=== PATIENT | female | born 1970 | race Native Hawaiian/Other Pacific Islander ===

== ENCOUNTER 2017-08-29 09:57 | Inpatient (IN) | payer MEDICAID ==
[2017-08-29] MEDS ORDERED: POLYETHYLENE GLYCOL 3350 17 GM PKT PO PRN (17:25)
[2017-08-29] MEDS ORDERED: ACETAMINOPHEN 325 MG TAB PO PRN (17:25)
[2017-08-29] MEDS ORDERED: GABAPENTIN 300 MG CAP PO PRN (17:25)
[2017-08-29] MEDS ORDERED: LORazepam 0.5 MG TAB PO PRN (17:25)
[2017-08-29] MEDS ORDERED: BISACODYL 10 MG SUPP PR PRN (17:29)
[2017-08-29] MEDS ORDERED: ONDANSETRON DISINTEGRATING 4 MG TAB PO PRN (17:29)
[2017-08-29] MEDS ORDERED: IBUPROFEN 200 MG TAB PO SCH (18:00)
[2017-08-29] MEDS ORDERED: MAG HYDROX/AL HYDROX/SIMETH 30 ML UDCUP PO PRN (18:15)
[2017-08-29] MEDS: IBUPROFEN 200 MG TAB PO PRN (18:39)
[2017-08-29] MEDS ORDERED: MAGNESIUM CITRATE 300 ML BOTTLE PO ONE (18:42)
--- NOTE | 2017-08-29 18:49 | PDOREHIP ---
Admission [facility] - Admission - 3 Day Assessment Period Admission Date/Day 1: 08/29/17 Day 2: 08/30/17 Day 3: 08/31/17 - Active Diagnoses Comorbidities and Co-existing Conditions at Admission: 44435. None of the Above - Skin Conditions Unhealed Pressure Ulcer (1 or more/Stage 1 or >)-Admission: 0. No
--- NOTE | 2017-08-29 19:47 | GHP ---
[f rep st] HISTORY AND PHYSICAL POST ADMISSION PHYSICIAN EVALUATION AND REHABILITATION TREATMENT PLAN DATE OF ADMISSION: 08/29/2017 DATE OF EVALUATION: 08/29/2017. TIME OF EVALUATION: 1755. REFERRING FACILITY: [facility]. REFERRING PHYSICIAN; Dr. Beaver. IMPAIRMENT GROUP: 17.9. DATE OF ONSET: 08/26/2017. 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 CONSULTING PHYSICIANS: She was seen by Pulmonary and Critical Care, Dr. Raymundo and by Neurology. ETIOLOGIC DIAGNOSIS: Other medically complex conditions. HISTORY OF PRESENT ILLNESS: This patient presented to the Emergency Department at [facility] on 08/26/2017, after having 6 weeks of progressive upper and lower extremity weakness as well as muscle pain and loss of sensation. She had an outpatient evaluation including multiple tests, and was initially treated for hypothyroidism. Subsequent testing revealed a positive P-ANCA and anti- myeloperoxidase antibodies, consistent with a vasculitis. She was treated with very high dose IV steroids, 1000 mg of methylprednisolone per day for several days, and then has been transitioned to oral prednisone at 60 mg twice a day. She has had improvement in her function; however, she continues to have muscle weakness and a lack of sensation, especially in her ankles, with a prominent footdrop on the left, in her legs, and weakness in her arms and hands and loss of sensation in her hands. Hospital evaluation included brain imaging and spinal imaging, which found no significant abnormalities. CT and an MRI were done of the brain, and she had MR imaging of the spine. She was found to have a slightly elevated TSH and was continued on her levothyroxine dose. There was an elevated white blood cell count, most likely due to steroids. She had no signs or symptoms of infection. TSH was 5.17. She had no renal insufficiency, with a normal creatinine and estimated glomerular filtration rate. Urinalysis was overall within normal limits, but she had moderate blood in the urine. CSF studies were unremarkable. Brain MRI showed scattered T2 hyperintensities in the subcortical and periventricular white matter which were considered abnormal, given her age, and consistent with demyelinating disease, migraine vasculopathy , vasculitis, or chronic microvascular ischemic change. Per report, there was a Neurology consult, and she was not felt to have any demyelinating condition. Lab tests obtained today, 08/29/2017, were as follows: The CBC showed an elevated white blood cell count at 15.4. She had developed mild anemia with a hemoglobin of 11.3 and hematocrit of 35. Platelet count was markedly elevated at 774. Comprehensive metabolic profile showed normal renal function and electrolytes but possibly some dehydration, with a blood urea nitrogen of 26 and a creatinine of 0.66, and a BUN to creatinine ratio of 39. Glucose was elevated at 143, and this was likely drawn fasting. Albumin was slightly low at 2.4; otherwise, liver function tests were within normal limits. CRP was 138. On spinal cord imaging, in the C-spine there was a mild spinal cord narrowing and foraminal narrowing, but no abnormalities in the cord. Thoracic spine MRI was normal. Lumbar spine MRI showed minimal left facet synovitis and mild left caudal foraminal narrowing at L4-5 due to a small 1 mm left foraminal disk protrusion, but otherwise was within normal limits. Chest x-ray was normal, though the radiologist noted that the bones were diffusely osteopenic. PRECAUTIONS: She is a fall risk. ACTIVE COMORBIDITIES: She has no active tier 1, tier 2, or tier 3 comorbidities. PAST MEDICAL HISTORY: Hypothyroidism. PAST SURGICAL HISTORY: She has not had prior surgeries. PREHOSPITAL MEDICATIONS: She was taking levothyroxine. ADMISSION MEDICATIONS: 1. Acetaminophen 650 mg p.o. q.6 hours p.r.n. 2. Hydrocodone/acetaminophen 5/325, 1-2 tabs p.o. q.4 hours p.r.n. 3. Maalox 30 cc p.o. b.i.d. p.r.n. heartburn. 4. Enoxaparin 40 mg subcutaneous daily at 1600. 5. Gabapentin 300 mg p.o. t.i.d. p.r.n. 6. Ibuprofen 200 mg p.o. t.i.d. with meals. 7. Levothyroxine 75 mcg p.o. daily. 8. Lorazepam 0.5-1 mg p.o. q.4 hours p.r.n. anxiety. 9. control pill with iron supplement. 10. Ondansetron 4 mg IV q.4 hours p.r.n. 11. Polyethylene glycol 17 g p.o. daily p.r.n. 12. Prednisone 60 mg p.o. q.12 hours. 13. Senna/docusate 1 p.o. daily. 14. Tramadol 50 mg p.o. at bedtime. ALLERGIES: There are no known drug allergies. PSYCHOSOCIAL HISTORY: She is . She lives with her . She is mother of a 7-year-old and a 9-year-old. She does not work outside of the house. She has a remote history of tobacco smoking and alcohol use, but does not use those substances currently. FAMILY HISTORY: She reports that her parents are in good health. REVIEW OF SYSTEMS: She says that she had some loss of peripheral vision, but this has recovered. She denies headache or difficulty swallowing. She reports loss of sensation in her fingers and in her feet below the ankles and she has weakness, especially in her ankles and hands bilaterally. She reports constipation times several days, which has been refractory to use of suppository 2 days ago, as well as the laxatives she has been getting so far, which included a daily senna tablet and polyethylene glycol every day. She had prominent muscle pain, especially in her legs, but this has resolved. She now has tingling in the extremities, which is bothersome. She has been able to sleep. She has no dysuria, urinary retention, or urinary frequency. She denies cough or dyspnea. She is not bringing up sputum, and no hemoptysis. She has a good appetite. She had considerable weight loss over the past several weeks leading up to her hospitalization, and otherwise a 10-point review of systems is negative. PHYSICAL EXAM: VITAL SIGNS: Blood pressure is 128/76, heart rate is 52, respiratory rate is 14, temperature is 98.3, oxygen saturation is 95% on room air. GENERAL: This is a well-nourished, well-developed woman, appears her chronologic age, lying in bed, dressed in street clothes, cooperative and in no acute distress. HEENT: Extraocular movements are intact. Pupils are equal, round, and reactive to light. Mucous membranes are moist. Dentition is in good condition. There are no oropharyngeal mucosal lesions. She has an uncrowded airway, Mallampati class 2. NECK: Supple, with no thyromegaly. HEART: There is a regular rate and rhythm with no murmurs, rubs, or gallops. LUNGS: Clear to auscultation bilaterally. ABDOMEN: Soft, nontender, nondistended, with normoactive bowel sounds. EXTREMITIES: There is no cyanosis or clubbing. There is trace edema bilaterally at the ankles. Radial and dorsalis pedis pulses are 2+ bilaterally. NEUROLOGIC: She is alert and oriented x3. Cranial nerves 2-12 are grossly intact. She has weakness in the upper extremities bilaterally, in the hand manager decision support approximately 3/5, and biceps and triceps approximately 3/5. Her deltoids and shoulder shrugs are 5/5. In the lower extremities, hip flexors are 4/5, quadriceps are 5/5, hamstrings are 4 /5, and ankle dorsiflexion is 0 to 1/5 on the left and 1 to 2/5 on the right. Her toes have dorsiflexion and plantar flexion. Deep tendon reflexes are 2+ bilaterally at the biceps, patellae, and Achilles tendons. Sensation is diminished bilaterally in the hands and is absent in the feet below the ankles to light touch, and it is present above the ankles and the feet. She is able to arise from seated to standing using her hands on the bed rail, and she can maintain balance standing with a front-wheeled walker. When she attempts to ambulate, she has very prominent footdrop on the left. CURRENT LEVEL OF FUNCTION: Per the pre-admission screen. Regarding diet, feeding, and swallowing, she was on regular diet with thin liquids. She required setup. For grooming, she needed assistance. For bathing, she needed assistance. For dressing, she needed minimal assistance to don her socks. For toileting, she needed assistance. For bed mobility, she needed minimal assistance, but today she is independent with bed mobility. For transfers, she required minimal assistance but today she requires no more than standby to contact guard assist. She used a front-wheeled walker. Her balance was poor. Her endurance was poor. She ambulated approximately 10 feet with minimal assistance. Stair climbing needed assistance. She was considered a fall risk, and it was noted that her left hand was stronger than her right hand. She has had some functional improvement in terms of ability to stand and possibly to transfer and regarding her bed mobility since the preadmission screen, but she still meets criteria for inpatient rehabilitation. IMPRESSION: This is a 46-year-old woman who has had a 6-week history of progressive weakness in the legs leading to 3 falls at home, and eventual diagnosis of a vasculitis. She was hospitalized and had 3 days of high-dose IV steroids and is now on oral steroids. Per the discharging physician, she has had about a 40% to 50% improvement in her symptoms during her hospitalization, but she remains quite debilitated, requiring assistance for mobility and activities of daily living, with profound muscle weakness, especially distally in the upper and lower extremities. She is appropriate for inpatient rehabilitation, where she will benefit from nursing care regarding fall risk, bowel and bladder, skin integrity, medication administration and medication education. She will benefit from physical therapy and occupational therapy to optimize mobility and activities of daily living towards discharge home. She will benefit from the care of a physician regarding deep venous thrombosis risk, pain management, constipation, and medication management. Her goal is to complete a rehabilitation stay and then return home with her family, and home health care and durable medical equipment as needed. For a safe discharge it is expected that she will achieve modified independence with mobility, activities of daily living, and home management. She will be able to manage her medication and she will have had medication education. There will be education for the patient and her family regarding her medical condition and her functional needs. She will have therapy with physical therapy and occupational therapy for 90 minutes per day for each discipline on 5-7 days per week. Her expected duration of stay is 7-10 days. It is anticipated that upon discharge she will continue to benefit from home health services including nursing, occupational therapy, and physical therapy. PLAN: 1. 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 PT and OT to optimize mobility and activities of daily living toward discharge home at the modified independent level. 2. Medical management of vasculitis. Continue prednisone 60 mg p.o. b.i.d. She has followup scheduled with [place] mattress stripper, Dr. Flores, on 2017, at the [facility] at 2:00 p.m., where Dr. Flores will do further assessment and determine future medication management. This likely will involve steroid sparing agents such as rituximab, cyclophosphamide, or mycophenolate. Check CRP on 09/01/2017. 3. Symptom management. She continues to complain of paresthesias. Will schedule gabapentin rather than continuing it p.r.n. Additionally, will continue acetaminophen, hydrocodone/acetaminophen combination, and ibuprofen. Those will remain. 4. Constipation. This has been refractory to her bowel regimen. Bisacodyl suppository was not effective on the of this month. She has been getting polyethylene glycol daily and 1 senna tablet daily. Will increase senna to 2 tablets p.o. b.i.d., and will order magnesium citrate which can be administered tomorrow outside of her scheduled therapy times if she does not have a bowel movement with her increased bowel regimen. 5. Anxiety and insomnia. She has a prescription for lorazepam, and this will be continued. 6. Question of nausea and vomiting. She comes with a prescription for ondansetron to be administered IV. Will not continue IV medications, but will continue ondansetron on a p.r.n. basis orally. 7. Anemia, thrombocytosis and hyperglycemia. We will recheck a basic metabolic profile and a complete blood count in the morning to evaluate both of these conditions. 8. Osteopenia on imaging. Check vitamin D level. 9. Prophylaxis. She comes out of the hospital on enoxaparin. If her mobility improves significantly, this will be discontinued soon. As she is also concurrently on ibuprofen and prednisone, she has elevated risk for GI bleeding. We will initiate pantoprazole 40 mg p.o. daily starting tomorrow morning. Followup. She is scheduled to see [place] mattress stripper Dr. Flores on Friday , 09/01/2017, at 2:00 p.m. Her primary care provider at [facility] is Susan Houser MD, and she should see Dr. Houser after her discharge from Inpatient Rehabilitation. /[id number]/MODL MTDD
[2017-08-29] MEDS ORDERED: methylPREDNISolone SOD SUCC 125 MG/2 ML VIAL IVP SCH (21:00)
[2017-08-29] MEDS ORDERED: methylPREDNISolone SOD SUCC 40 MG/ML VIAL IVP SCH (21:00)
[2017-08-29] MEDS: SENNOSIDES/DOCUSATE SODIUM TAB PO SCH (21:50)
[2017-08-29] MEDS: GABAPENTIN 300 MG CAP PO SCH (21:50)
[2017-08-29] MEDS: traMADol 50 MG TAB PO SCH (21:50)
[2017-08-29] MEDS: predniSONE 20 MG TAB PO SCH (21:50)
[2017-08-30] MEDS: HYDROCODONE/APAP 5/325 TAB PO PRN (03:56)
[2017-08-30] MEDS: LEVOTHYROXINE 75 MCG TAB PO SCH (05:56)
[2017-08-30] MEDS ORDERED: SENNOSIDES/DOCUSATE SODIUM TAB PO SCH (09:00)
[2017-08-30] MEDS: predniSONE 20 MG TAB PO SCH ×2 (09:34→21:52)
[2017-08-30] MEDS: GABAPENTIN 300 MG CAP PO SCH ×3 (09:34→21:52)
[2017-08-30] MEDS: SENNOSIDES/DOCUSATE SODIUM TAB PO SCH ×3 (09:34→22:00)
[2017-08-30] MEDS: PANTOPRAZOLE SODIUM 40 MG TAB PO SCH (09:34)
[2017-08-30] MEDS: JUNEL FE PO SCH (10:46)
--- NOTE | 2017-08-30 14:00 | SOAPPROG ---
SOAP Progress Note Assessment/Plan: Assessment: 46 YO woman with vasculitis, headache 1. Peripheral nervous system vasculitis with distal weakness: Rheumtology workup underway. Cont steroids, PT and PT eval and treat 2. Headache: unresponsive to meds and or patient declining meds; further education and reassurance provided, options reviewed. 3. Dysesthesias: unchanged. Cont Gabapentin TID. 4. Constipation: no BM x 5 days, poor PO intake x 5 days, better today. Trial suppository, trial mag citrate. Monitor. 5. Anxiety, Insomnia: declining meds. Cont education and reassurance. 6. Nausea/Vomiting: none reported since admission 08/29. Cont ondansetron PRN 7. Anemia: No new labs ordered, cont to monitor 8. Hyperglycemia: No new labs ordered, cont to monitor 9. Prophylaxis: Cont enoxaparin for DVT risk, Cont pantoprazole for GI bleed risk 10. Followup: Rheumatology eval on Friday 09/01 Plan: Cont Dr Spencer rehab treatment plan 08/30/17 14:01 Subjective: Mildly anxious Moderately severe ORDONEZ 7/10, slightly improved Poor sleep Poor PO intake, but improving No F/C/CP/SOB/N/V/D Objective: Vital Signs Temp Pulse Resp BP Pulse Ox 36.4 C 50 L 16 128/77 H 95 08/30/17 08:00 08/30/17 08:00 08/30/17 08:00 08/30/17 08:00 08/30/17 08:00 08/29/17 08/30/17 08/31/17 05:59 05:59 05:59 Intake Total 200 Output Total 1150 Balance -950 Physical Exam - Physical Exam General Appearance: alert, no apparent distress Neck: supple Respiratory: lungs clear Cardiac/Chest: regular rate, rhythm Abdomen: normal bowel sounds, soft Skin: normal color, warm/dry, No rash Extremities: No pedal edema, No calf tenderness Neuro/Psych: alert, normal mood/affect, oriented x 3, abnormal gait, motor weakness, sensory deficit, other (no acute changes), No cognition abnormalities ICD10 Worksheet Patient Problems: Problems Problem Status Onset 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
[2017-08-30] MEDS ORDERED: MAGNESIUM CITRATE 300 ML BOTTLE PO ONE (16:15)
[2017-08-30] MEDS: ENOXAPARIN 40 MG/0.4 ML SYR SC SCH (16:17)
[2017-08-30] MEDS: traMADol 50 MG TAB PO SCH ×2 (21:52→22:00)
[2017-08-31] MEDS: HYDROCODONE/APAP 5/325 TAB PO PRN (03:58)
[2017-08-31] MEDS: LEVOTHYROXINE 75 MCG TAB PO SCH (07:01)
[2017-08-31] MEDS: SENNOSIDES/DOCUSATE SODIUM TAB PO SCH ×2 (08:06→20:47)
[2017-08-31] MEDS: JUNEL FE PO SCH (08:06)
[2017-08-31] MEDS: GABAPENTIN 300 MG CAP PO SCH ×3 (09:04→20:34)
[2017-08-31] MEDS: PANTOPRAZOLE SODIUM 40 MG TAB PO SCH (09:04)
[2017-08-31] MEDS: predniSONE 20 MG TAB PO SCH ×2 (09:04→20:33)
--- NOTE | 2017-08-31 11:56 | SOAPPROG ---
SOAP Progress Note Assessment/Plan: Assessment: 46 YO woman with vasculitis, headache update: No new problems. Still with headache and dysesthesias, not responding to meds, and patient often declines meds available to her. Participating in therapy. 1. Peripheral nervous system vasculitis with distal weakness: Rheumatology workup underway. Cont steroids, PT and OT eval and treat 2. Headache: unresponsive to meds and or patient declining meds; further education and reassurance provided, options reviewed. 3. Dysesthesias: unchanged. Cont Gabapentin 300 mg TID. 4. Constipation: Had good BM after mag citrate. Cont to Monitor. 5. Anxiety, Insomnia: declining meds. Cont education and reassurance. 6. Nausea/Vomiting: none reported since admission 08/29. Cont ondansetron PRN 7. Anemia: F/U labs in am. 8. Hyperglycemia: F/U labs in am. 9. Prophylaxis: Cont enoxaparin for DVT risk, Cont pantoprazole for GI bleed risk 10. Followup: Rheumatology eval on Friday 09/01 Plan: Cont Dr Dubon's rehab treatment plan 08/31/17 11:53 08/31/17 11:56 Subjective: No F/C/CP/SOB/N/V/D/C Objective: Vital Signs Temp Pulse Resp BP Pulse Ox 36.3 C 73 17 125/82 H 95 08/30/17 20:00 08/31/17 08:00 08/31/17 08:00 08/31/17 08:00 08/31/17 08:00 08/30/17 08/31/17 09/01/17 05:59 05:59 05:59 Intake Total 200 90 Output Total 1150 Balance -950 90 Physical Exam - Physical Exam General Appearance: alert, no apparent distress Neck: supple Respiratory: lungs clear Cardiac/Chest: regular rate, rhythm Neuro/Psych: alert, oriented x 3, motor weakness, sensory deficit, other (No acute changes) ICD10 Worksheet Patient Problems: Problems Problem Status Onset 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
[2017-08-31] MEDS: ENOXAPARIN 40 MG/0.4 ML SYR SC SCH (15:32)
[2017-08-31] MEDS: traMADol 50 MG TAB PO SCH (20:33)
[2017-09-01] MEDS: HYDROCODONE/APAP 5/325 TAB PO PRN (01:12)
[2017-09-01] MEDS: LEVOTHYROXINE 75 MCG TAB PO SCH (05:31)
[2017-09-01 08:22] LABS: PLATELET COUNT 725 10^3/uL (150-400)
[2017-09-01] MEDS: GABAPENTIN 300 MG CAP PO SCH ×3 (08:51→23:05)
[2017-09-01] MEDS: predniSONE 20 MG TAB PO SCH (08:52)
[2017-09-01] MEDS: PANTOPRAZOLE SODIUM 40 MG TAB PO SCH (08:52)
[2017-09-01] MEDS: SENNOSIDES/DOCUSATE SODIUM TAB PO SCH ×2 (08:53→20:58)
[2017-09-01] MEDS: JUNEL FE PO SCH (08:57)
--- NOTE | 2017-09-01 09:20 | SOAPPROG ---
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 * Initial functional independence measure score 87. Standby assist for bed mobility, contact guard assist for transfers with a front wheeled walker. Contact guard animal assist ambulating 100 ft with a left AFO. Climbed 5 stairs with bilateral rails and minimal assistance. Upper body dressing with setup/contact guard assist except needs assistance for closure of brought. Lower body assist for AFO and the shoe on the left foot. She transfer in bathing was done with supervision. * Continue PT and OT to optimize mobility and activities of daily living toward discharge home at the modified independent level. Medical management of vasculitis. Continue prednisone 60 mg p.o. b.i.d. She has followup scheduled with [place] final canoe inspector, Dr. Flores, on 09/01/2017 , at the [facility] at 2:00 p.m., where Dr. Flores will do further assessment and determine future medication management. This likely will involve steroid sparing agents such as rituximab, cyclophosphamide, or mycophenolate. Check CRP on 09/01/2017. Symptom management. She continues to complain of paresthesias. * Increase gabapentin from 300 mg three times daily to 400 mg three times daily. * Continue acetaminophen, hydrocodone/acetaminophen combination, and ibuprofen. Those will remain. * Insomnia. * Hope for improvement if neuropathic comes responded to increased gabapentin, and if prednisone will be tapered or discontinued. * Zolpidem and lorazepam are available. * Constipation. Responding to bowel regimen. * Continue senna twice daily in a polyethylene glycol q.day, physical suppository p.r.n.. Consider repeat magnesium citrate if necessary. * Thrombocytosis. Likely due to vasculitis. No specific treatment indicated * Osteopenia on imaging. Low vitamin-D. Initiated supplementation 09/01/2017. * Prophylaxis. She comes out of the hospital on enoxaparin. If her mobility improves significantly, this will be discontinued soon. As she is also concurrently on ibuprofen and prednisone, she has elevated risk for GI bleeding. We will initiate pantoprazole 40 mg p.o. daily starting tomorrow morning. Followup. She is scheduled to see [place] final canoe inspector Dr. Flores on Friday , 09/01/2017, at 2:00 p.m. Her primary care provider at [facility] is Susan Houser MD, and she should see Dr. Houser after her discharge from Inpatient Rehabilitation. Attended staffing, 15 min. Discussed with piano case and bench assembler, pharmacist, dietitian, PT, OT. Lives in a 2 level home with 13 steps there is also basement. There are 2 steps to enter. Lives with her and takes care of 2 children ages 7 and 9. Expect to week length of stay. Tentative discharge date of 09/10/2017. 09/01/17 11:44 Subjective: Neuropathic symptoms with tingling in the x-rays interfered with sleep last night. Zolpidem was ordered by the weekend covering physician but not given. Also reports constipation. Also has anxiety. Objective: Vital Signs Temp Pulse Resp BP Pulse Ox 36.7 C 50 L 14 123/83 H 94 08/31/17 20:00 08/31/17 20:00 08/31/17 20:00 08/31/17 20:00 08/31/17 20:00 Laboratory Results 09/01/17 06:00 09/01/17 06:00 08/31/17 09/01/17 09/02/17 05:59 05:59 05:59 Intake Total 830 Balance 830 Physical Exam - Physical Exam General Appearance: alert, no apparent distress, thin Respiratory: normal breath sounds, No crackles, No rhonchi, No wheezing Cardiac/Chest: regular rate, rhythm, edema (Trace bilateral pretibial), No diastolic murmur, No systolic murmur Skin: normal color, warm/dry Neuro/Psych: alert, normal mood/affect, oriented x 3 ICD10 Worksheet Patient Problems: Problems Problem Status Onset 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
[2017-09-01] MEDS: CHOLECALCIFEROL VIT D3 2,000 UNITS TAB/CAP PO SCH (12:11)
[2017-09-01] MEDS ORDERED: predniSONE 20 MG TAB PO SCH (18:00)
[2017-09-01] MEDS: ENOXAPARIN 40 MG/0.4 ML SYR SC SCH (18:07)
[2017-09-01] MEDS: traMADol 50 MG TAB PO SCH (20:58)
[2017-09-02] MEDS: LEVOTHYROXINE 75 MCG TAB PO SCH (06:14)
[2017-09-02] MEDS: GABAPENTIN 300 MG CAP PO SCH (08:37)
[2017-09-02] MEDS: predniSONE 20 MG TAB PO SCH (08:38)
[2017-09-02] MEDS: PANTOPRAZOLE SODIUM 40 MG TAB PO SCH (08:38)
[2017-09-02] MEDS: CHOLECALCIFEROL VIT D3 2,000 UNITS TAB/CAP PO SCH (08:39)
[2017-09-02] MEDS: SENNOSIDES/DOCUSATE SODIUM TAB PO SCH ×2 (08:46→20:58)
[2017-09-02] MEDS: JUNEL FE PO SCH (11:58)
--- NOTE | 2017-09-02 12:33 | SOAPPROG ---
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 * Initial functional independence measure score 87. Standby assist for bed mobility, contact guard assist for transfers with a front wheeled walker. Contact guard animal assist ambulating 100 ft with a left AFO. Climbed 5 stairs with bilateral rails and minimal assistance. Upper body dressing with setup/contact guard assist except needs assistance for closure of brought. Lower body assist for AFO and the shoe on the left foot. She transfer in bathing was done with supervision. * Ambulation improved to 150' and per PT can do this 3x/day or more as of 2017.. * Continue PT and OT to optimize mobility and activities of daily living toward discharge home at the modified independent level. * Mononeuritis multiplex. * Seen by Rheumatology 09/01/2017. * Prednisone reduced to 60 mg QD. * Needs muscle/nerve biopsy. * Follow-up with Rheumatology in 8 weeks, or approximately 10/27/2017. * Symptom management. She continues to complain of paresthesias. * Increase gabapentin from 300 mg three times daily to 400 mg three times daily starting 09/02/2017. * Continue acetaminophen, hydrocodone/acetaminophen combination, tramadol QHS, and ibuprofen. * Insomnia. * Hope for improvement if neuropathic comes responded to increased gabapentin, and with prednisone taper. * Zolpidem and lorazepam are available. * Anxiety. Intervention per LEGAL WRITING PROFESSOR. Consider Psychiatry consult. * Constipation. Responding to bowel regimen. * Continue senna twice daily and polyethylene glycol q.day PRN, bisacodyl suppository p.r.n.. Consider repeat magnesium citrate if necessary. * Thrombocytosis. Likely due to vasculitis. No specific treatment indicated * Osteopenia on imaging. Low vitamin-D. Initiated supplementation 09/01/2017. DEXA ordered per Rheumatology; brian get it as outpatient after discharge. * Prophylaxis. Ambulating > 150' TID. Will d/c enoxaparin and famotidine starting 09/03/2017. Followup. She is scheduled to see [facility] operator [employer] Dr. Sandra calle approximately 10/27/2017. Her primary care provider at [facility] is Susan Houser MD, and she should see Dr. Houser after her discharge from [facility]patient [facility]. Lives in a 2 level home with 13 steps there is also basement. There are 2 steps to enter. Lives with her and takes care of 2 children ages 7 and 9. Expect to week length of stay. Tentative discharge date of 09/10/2017. 09/02/17 12:36 Subjective: Continues to complain of pain, especially R biceps and tingling in the fingers. Feels like feet are swollen, and also lacks sensation in feet. Symptoms interfere with sleep. Objective: Vital Signs Temp Pulse Resp BP Pulse Ox 36.6 C 73 18 115/83 H 93 09/02/17 06:41 09/02/17 06:41 09/02/17 06:41 09/02/17 06:41 09/02/17 06:41 Laboratory Results 09/01/17 06:00 09/01/17 06:00 09/01/17 09/02/17 09/03/17 05:59 05:59 05:59 Intake Total 830 886 350 Balance 830 886 350 Physical Exam - Physical Exam General Appearance: WD/WN, alert, no apparent distress Respiratory: No respiratory distress, No accessory muscle use Skin: normal color, warm/dry Extremities: pedal edema (trace) Neuro/Psych: alert, normal mood/affect, oriented x 3, abnormal gait (Observed ambulating in chun with PT using R hand on rail, slow, ataxic.), other (Anxious) ICD10 Worksheet Patient Problems: Problems Problem Status Onset Peripheral neuropathy due to inflammation Acute Vasculitis, ANCA positive Acute 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
[2017-09-02] MEDS ORDERED: GABAPENTIN 300 MG CAP PO SCH (12:40)
[2017-09-02] MEDS: GABAPENTIN 400 MG CAP PO SCH ×3 (13:37→21:00)
[2017-09-02] MEDS: ENOXAPARIN 40 MG/0.4 ML SYR SC SCH (16:29)
[2017-09-02] MEDS: traMADol 50 MG TAB PO SCH (20:59)
[2017-09-02] MEDS: ZOLPIDEM TARTRATE 5 MG TAB PO PRN (21:53)
[2017-09-03] MEDS: HYDROCODONE/APAP 5/325 TAB PO PRN (04:22)
[2017-09-03] MEDS: LEVOTHYROXINE 75 MCG TAB PO SCH (06:24)
[2017-09-03] MEDS: GABAPENTIN 400 MG CAP PO SCH ×3 (09:05→21:53)
[2017-09-03] MEDS: CHOLECALCIFEROL VIT D3 2,000 UNITS TAB/CAP PO SCH (09:06)
[2017-09-03] MEDS: predniSONE 20 MG TAB PO SCH (09:08)
[2017-09-03] MEDS: PANTOPRAZOLE SODIUM 40 MG TAB PO SCH (09:08)
[2017-09-03] MEDS: SENNOSIDES/DOCUSATE SODIUM TAB PO SCH ×2 (09:11→20:12)
[2017-09-03] MEDS: JUNEL FE PO SCH (10:28)
--- NOTE | 2017-09-03 11:17 | SOAPPROG ---
SOAP Progress Note Assessment/Plan: Assessment: 46-year-old woman hospitalized 08/26/2017 after 6 week course of increasing weakness leading to falls at home, with diagnosis of P-ANCA vasculitis, treated with 1000 mg IV prednisolone x3 days. Diagnosis of mononeuritis multiplex per Rheumatology 09/01/2017. 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 * Initial functional independence measure score 87. Standby assist for bed mobility, contact guard assist for transfers with a front wheeled walker. Contact guard minimal assist ambulating 100 ft with a left AFO. Climbed 5 stairs with bilateral rails and minimal assistance. Upper body dressing with setup/contact guard assist except needs assistance for closure of brought. Lower body assist for AFO and the shoe on the left foot. She transfer in bathing was done with supervision. * Ambulation improved to 150' and per PT can do this 3x/day or more as of 2017.. * Continue PT and OT to optimize mobility and activities of daily living toward discharge home at the modified independent level. * Mononeuritis multiplex. * Seen by Rheumatology 09/01/2017. * Prednisone reduced to 60 mg QD. * Needs muscle/nerve biopsy, to be scheduled per [facility].. * Follow-up with Rheumatology in 8 weeks, or approximately 10/27/2017. Symptom management. She continues to complain of paresthesias. * Increased gabapentin from 300 mg three times daily to 400 mg three times daily. * Continue acetaminophen, hydrocodone/acetaminophen combination, and ibuprofen. Tramadol QHS.. * Insomnia. * Hope for improvement if neuropathic comes responded to increased gabapentin, and if prednisone will be tapered or discontinued. * Zolpidem and lorazepam are available. * Constipation. Responding to bowel regimen. * Continue senna twice daily in a polyethylene glycol q.day, physical suppository p.r.n.. Consider repeat magnesium citrate if necessary. * Thrombocytosis. Likely due to vasculitis. No specific treatment indicated * Osteopenia on imaging. Low vitamin-D. Initiated supplementation 09/01/2017. * Prophylaxis. Ambulating > 150' TID. D/C'd enoxaparin and famotidine starting 09/03/2017. Followup. She is scheduled to see [facility] [employer] Dr. Sandra calle approximately 10/27/2017. Her primary care provider at [facility] is Susan Houser MD, and she should see Dr. Houser after her discharge from Inpatient Rehabilitation. Lives in a 2 level home with 13 steps there is also basement. There are 2 steps to enter. Lives with her and takes care of 2 children ages 7 and 9. Expect two week length of stay. Tentative discharge date of 09/10/2017. 09/03/17 11:12 Subjective: Slept well with zolpidem last night. Still with tingling and lack of sensation in hands. Feels swelling is reduced in feet. Pain adequately controlled. Objective: Vital Signs Temp Pulse Resp BP Pulse Ox 36.6 C 60 14 131/80 H 91 L 09/03/17 07:21 09/03/17 07:21 09/03/17 07:21 09/03/17 07:21 09/03/17 07:21 Laboratory Results 09/01/17 06:00 09/01/17 06:00 09/02/17 09/03/17 09/04/17 05:59 05:59 05:59 Intake Total 886 350 100 Balance 886 350 100 Physical Exam - Physical Exam General Appearance: WD/WN, alert, no apparent distress Respiratory: normal breath sounds, No crackles, No rhonchi, No wheezing Cardiac/Chest: regular rate, rhythm, edema (trace B ankles), No diastolic murmur , No systolic murmur Skin: normal color, warm/dry Neuro/Psych: alert, normal mood/affect, oriented x 3, abnormal gait (Slow, with FWW & L AFO) ICD10 Worksheet Patient Problems: Problems Problem Status Onset Peripheral neuropathy due to inflammation Acute Vasculitis, ANCA positive Acute 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
[2017-09-03] MEDS: ENOXAPARIN 40 MG/0.4 ML SYR SC SCH (16:13)
[2017-09-03] MEDS: traMADol 50 MG TAB PO SCH (21:52)
[2017-09-03] MEDS: ZOLPIDEM TARTRATE 5 MG TAB PO PRN (21:53)
[2017-09-04] MEDS: LEVOTHYROXINE 75 MCG TAB PO SCH (05:03)
[2017-09-04] MEDS: HYDROCODONE/APAP 5/325 TAB PO PRN (05:03)
[2017-09-04] MEDS: IBUPROFEN 200 MG TAB PO PRN (05:03)
[2017-09-04] MEDS: CHOLECALCIFEROL VIT D3 2,000 UNITS TAB/CAP PO SCH (08:55)
[2017-09-04] MEDS: GABAPENTIN 400 MG CAP PO SCH (08:55)
[2017-09-04] MEDS: SENNOSIDES/DOCUSATE SODIUM TAB PO SCH ×2 (08:55→22:15)
[2017-09-04] MEDS: predniSONE 20 MG TAB PO SCH (08:55)
[2017-09-04] MEDS: PANTOPRAZOLE SODIUM 40 MG TAB PO SCH (09:04)
[2017-09-04] MEDS: JUNEL FE PO SCH (10:46)
[2017-09-04] MEDS ORDERED: GABAPENTIN 400 MG CAP PO SCH (12:04)
--- NOTE | 2017-09-04 12:29 | SOAPPROG ---
SOAP Progress Note Assessment/Plan: Assessment: 46-year-old woman hospitalized 08/26/2017 after 6 week course of increasing weakness leading to falls at home, with diagnosis of P-ANCA vasculitis, treated with 1000 mg IV prednisolone x3 days. Diagnosis of mononeuritis multiplex per Rheumatology 09/01/2017. 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 * Initial functional independence measure score 87 on 09/01/2017. Standby assist for bed mobility, contact guard assist for transfers with a front wheeled walker. Contact guard minimal assist ambulating 100 ft with a left AFO. Climbed 5 stairs with bilateral rails and minimal assistance. Upper body dressing with setup/contact guard assist except needs assistance for closure of brought. Lower body assist for AFO and the shoe on the left foot. Shower transfer and bathing with supervision. * Ambulation improved to 150' and per PT can do this 3x/day or more as of 2017.. * Continue PT and OT to optimize mobility and activities of daily living toward discharge home at the modified independent level. * Mononeuritis multiplex. * Seen by Rheumatology 09/01/2017. Going for 2nd opinion on 09/09/2017. * Prednisone reduced to 60 mg QD. * Needs muscle/nerve biopsy, to be scheduled per [facility]. * Follow-up with Rheumatology in 8 weeks, or approximately 10/27/2017. Symptom management. She continues to complain of paresthesias. * Increased gabapentin from 300 mg three times daily to 400 mg three times daily on 09/02/2017. Increased further to 600 mg three times daily on 09/04/2017.. * Continue acetaminophen, hydrocodone/acetaminophen combination, and ibuprofen. Tramadol 50 mg QHS. * Insomnia. * Hope for improvement if neuropathic comes responded to increased gabapentin, and if prednisone will be tapered or discontinued. * Zolpidem and lorazepam are available. * Constipation. Responding to bowel regimen. * Continue senna twice daily in a polyethylene glycol q.day, physical suppository p.r.n.. Consider repeat magnesium citrate if necessary. * Thrombocytosis. Likely due to vasculitis. No specific treatment indicated. * Osteopenia on imaging. Low vitamin-D. Initiated supplementation 09/01/2017. * Prophylaxis. Ambulating > 150' TID. D/C'd enoxaparin 09/05/2017. Followup. She is scheduled to see [facility] rest[employer] Dr. Flores on approximately 10/27/2017. Her primary care provider at [facility] is Susan Houser MD, and she should see Dr. Houser after her discharge from Inpatient [facility]. Lives in a 2 level home with 13 steps there is also basement. There are 2 steps to enter. Lives with her and takes care of 2 children ages 7 and 9. Expect two week length of stay. Tentative discharge date of 09/10/2017. 09/04/17 13:17 Subjective: Has fatigue today after being more active yesterday. Continues to complain of pain in hands and feet especially at night. She has a squeezing feeling and a feeling of tingling. She continues to have no sensation in her feet and reduced sensation especially in her fingers distal to her palms. Objective: Vital Signs Temp Pulse Resp BP Pulse Ox 37.7 C 100 16 108/76 95 09/04/17 08:00 09/04/17 08:00 09/04/17 08:00 09/04/17 08:00 09/04/17 08:00 Laboratory Results 09/01/17 06:00 09/01/17 06:00 09/03/17 09/04/17 09/05/17 05:59 05:59 05:59 Intake Total 350 400 Balance 350 400 Physical Exam - Physical Exam General Appearance: WD/WN, alert, no apparent distress, thin Respiratory: No respiratory distress, No accessory muscle use Skin: normal color, warm/dry Neuro/Psych: alert, normal mood/affect, oriented x 3, abnormal gait (Slow, with L AFO and FWW) ICD10 Worksheet Patient Problems: Problems Problem Status Onset 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
[2017-09-04] MEDS ORDERED: GABAPENTIN 300 MG CAP ONE (16:13)
[2017-09-04] MEDS: GABAPENTIN 300 MG CAP PO SCH ×2 (16:33→22:11)
[2017-09-04] MEDS: traMADol 50 MG TAB PO SCH (22:11)
[2017-09-04] MEDS: ZOLPIDEM TARTRATE 5 MG TAB PO PRN (22:12)
[2017-09-05] MEDS: IBUPROFEN 200 MG TAB PO PRN (03:35)
[2017-09-05] MEDS: LEVOTHYROXINE 75 MCG TAB PO SCH (06:58)
--- NOTE | 2017-09-05 09:47 | SOAPPROG ---
SOAP Progress Note Assessment/Plan: Assessment: 46-year-old woman hospitalized 08/26/2017 after 6 week course of increasing weakness leading to falls at home, with diagnosis of P-ANCA vasculitis, treated with 1000 mg IV prednisolone x3 days. Diagnosis of mononeuritis multiplex per Rheumatology 09/01/2017. 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 * Initial functional independence measure score 87 on 09/01/2017. Standby assist for bed mobility, contact guard assist for transfers with a front wheeled walker. Contact guard minimal assist ambulating 100 ft with a left AFO. Climbed 5 stairs with bilateral rails and minimal assistance. Upper body dressing with setup/contact guard assist except needs assistance for fine motor coordination. Lower body assist for AFO and the shoe on the left foot. Shower transfer and bathing with supervision. * Ambulation improved to 150' and per PT can do this 3x/day or more as of 2017.. * Continue PT and OT to optimize mobility and activities of daily living toward discharge home at the modified independent level. * Mononeuritis multiplex vs Peripheral neuropathy ; may benefit from 4 limb nerve conduction studies plus EMG to help elucidate this. * Seen by Rheumatology 09/01/2017. Going for 2nd opinion on 09/09/2017. * Prednisone reduced to 60 mg QD. * Needs muscle/nerve biopsy, to be scheduled per [facility]. * Follow-up with Rheumatology in 8 weeks, or approximately 10/27/2017. Symptom management. She continues to complain of paresthesias in both hands and both feet, however she reports these continue to improve slowly. * Increased gabapentin from 300 mg three times daily to 400 mg three times daily on 09/02/2017. Increased further to 600 mg three times daily on 09/04/2017. * Continue acetaminophen, hydrocodone/acetaminophen combination, and ibuprofen. Tramadol 50 mg QHS. * Insomnia. * Hope for improvement if neuropathic comes responded to increased gabapentin, and if prednisone will be tapered or discontinued. * Zolpidem and lorazepam are available. * Constipation. Responding to bowel regimen. * Continue senna twice daily in a polyethylene glycol q.day, physical suppository p.r.n.. Consider repeat magnesium citrate if necessary. * Thrombocytosis. Likely due to vasculitis. No specific treatment indicated. * Osteopenia on imaging. Low vitamin-D. Initiated supplementation 09/01/2017. Will place on calcium supplementation. Pharmacy to review to make sure no cross reactions with supplemental calcium and current medications. + weight loss-will write order for nutrition supplements such as Ensure. * Prophylaxis. Ambulating > 150' TID. D/C'd enoxaparin 09/05/2017. Plan: 09/05/17 09:48 09/05/17 09:58 Subjective: She reports that she is slowly gaining strength in both her feet but continues to have bilateral ankle dorsiflexor weakness more pronounced on the left. Continues to have paresthesias in both ft but it is subsiding. Also reports bilateral hand paresthesias and loss of workforce specialist strength but also feels that it is slowly resolving. She has concern of continued weight loss. She reports that her previous weight was 58-60 kg and is currently 48 kg. Objective: Vital Signs Temp Pulse Resp BP Pulse Ox 36.7 C 71 14 115/81 H 93 09/05/17 08:00 09/05/17 08:00 09/05/17 08:00 09/05/17 08:00 09/05/17 08:00 Laboratory Results 09/01/17 06:00 09/01/17 06:00 09/04/17 09/05/17 09/06/17 05:59 05:59 05:59 Intake Total 400 300 Balance 400 300 Physical Exam - Physical Exam General Appearance: WD/WN, no apparent distress, thin Respiratory: lungs clear, normal breath sounds Cardiac/Chest: No edema Abdomen: normal bowel sounds, non-tender, soft Skin: normal color, warm/dry Neuro/Psych: motor weakness, sensory deficit (Left greater than right ankle dorsiflexor weakness. Decreased sensation in both feet. No allodynia. Decreased workforce specialist strength bilaterally. 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
[2017-09-05] MEDS: PANTOPRAZOLE SODIUM 40 MG TAB PO SCH (09:52)
[2017-09-05] MEDS: CHOLECALCIFEROL VIT D3 2,000 UNITS TAB/CAP PO SCH (09:52)
[2017-09-05] MEDS: GABAPENTIN 300 MG CAP PO SCH ×3 (09:52→21:12)
[2017-09-05] MEDS: predniSONE 20 MG TAB PO SCH (09:53)
[2017-09-05] MEDS: SENNOSIDES/DOCUSATE SODIUM TAB PO SCH ×2 (09:53→21:11)
[2017-09-05] MEDS: traMADol 50 MG TAB PO SCH (21:12)
[2017-09-05] MEDS: CALCIUM CARBONATE 500 MG TAB PO SCH (21:13)
[2017-09-06] MEDS: ZOLPIDEM TARTRATE 5 MG TAB PO PRN (01:16)
[2017-09-06] MEDS: IBUPROFEN 200 MG TAB PO PRN (01:16)
[2017-09-06] MEDS: LEVOTHYROXINE 75 MCG TAB PO SCH (05:14)
[2017-09-06] MEDS: HYDROCODONE/APAP 5/325 TAB PO PRN (05:21)
[2017-09-06] MEDS: predniSONE 20 MG TAB PO SCH (09:40)
[2017-09-06] MEDS: CHOLECALCIFEROL VIT D3 2,000 UNITS TAB/CAP PO SCH (09:40)
[2017-09-06] MEDS: CALCIUM CARBONATE 500 MG TAB PO SCH ×2 (09:40→21:15)
[2017-09-06] MEDS: SENNOSIDES/DOCUSATE SODIUM TAB PO SCH ×2 (09:41→21:16)
[2017-09-06] MEDS: PANTOPRAZOLE SODIUM 40 MG TAB PO SCH (09:41)
[2017-09-06] MEDS: PYRIDOXINE HCL 100 MG TAB PO SCH (09:41)
[2017-09-06] MEDS: GABAPENTIN 300 MG CAP PO SCH ×3 (09:41→21:16)
--- NOTE | 2017-09-06 10:02 | SOAPPROG ---
SOAP Progress Note Assessment/Plan: Assessment/Plan: 46-year-old woman hospitalized 08/26/2017 after 6 week course of increasing weakness leading to falls at home, with diagnosis of P-ANCA vasculitis, treated with 1000 mg IV prednisolone x3 days. Diagnosis of mononeuritis multiplex per Rheumatology 09/01/2017. 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 * Initial functional independence measure score 87 on 09/01/2017. Standby assist for bed mobility, contact guard assist for transfers with a front wheeled walker. Contact guard minimal assist ambulating 100 ft with a left AFO. Climbed 5 stairs with bilateral rails and minimal assistance. Upper body dressing with setup/contact guard assist except needs assistance for fine motor coordination. Lower body assist for AFO and the shoe on the left foot. Shower transfer and bathing with supervision. * Ambulation improved to 150' and per PT can do this 3x/day or more as of 2017.. * Continue PT and OT to optimize mobility and activities of daily living toward discharge home at the modified independent level. * Mononeuritis multiplex vs Peripheral neuropathy ; may benefit from 4 limb nerve conduction studies plus EMG to help elucidate this. * Seen by Rheumatology 09/01/2017. Going for 2nd opinion on 09/09/2017. * Prednisone reduced to 60 mg QD. * Needs muscle/nerve biopsy, to be scheduled per [facility]. * Follow-up with Rheumatology in 8 weeks, or approximately 10/27/2017. Symptom management. She continues to complain of paresthesias in both hands and both feet, however she reports these continue to improve slowly. * Increased gabapentin from 300 mg three times daily to 400 mg three times daily on 09/02/2017. Increased further to 600 mg three times daily on 09/04/2017. * Continue acetaminophen, hydrocodone/acetaminophen combination, and ibuprofen. Tramadol 50 mg QHS. * Added PRN neurontin dose at night because this is when the pain seems to be the worst * Insomnia. * Hope for improvement if neuropathic comes responded to increased gabapentin, and if prednisone will be tapered or discontinued. * Zolpidem and lorazepam are available. * Constipation. Responding to bowel regimen. * Continue senna twice daily in a polyethylene glycol q.day, physical suppository p.r.n.. Consider repeat magnesium citrate if necessary. * Thrombocytosis. Likely due to vasculitis. No specific treatment indicated. * Osteopenia on imaging. Low vitamin-D. Initiated supplementation 09/01/2017. Will place on calcium supplementation. Pharmacy to review to make sure no cross reactions with supplemental calcium and current medications. + weight loss-will write order for nutrition supplements such as Ensure. * Prophylaxis. Ambulating > 150' TID. D/C'd enoxaparin 09/05/2017. Update - Pt reporting that overall the tingling has made progress but still feel the numbness that she was hoping would be decreased/abated with the neurontin. We discussed the benefits she could expect from the medication and also added a PRN QHS dose given she feels that usually the nights are the worst. No new functional deficits or other changes. 09/06/17 10:01 Subjective: Overall feeling happy with the progress- wishes it was faster but understands that with nerves it takes time to improve. Noticed a benefit from the neurontin but does make her a little sleepy - Feels like it is at a pretty good balance although at night is when the pain seems to be the worst. Asked about meds that might be able to treat numbness but we discussed these meds will not treat that - this improves with time and nerve recovery Objective: Vital Signs Temp Pulse Resp BP Pulse Ox 36.9 C 62 16 109/69 94 09/06/17 06:27 09/06/17 06:27 09/06/17 06:27 09/06/17 06:27 09/06/17 06:27 Laboratory Results 09/01/17 06:00 09/01/17 06:00 09/05/17 09/06/17 09/07/17 05:59 05:59 05:59 Intake Total 300 725 Balance 300 725 Physical Exam - Physical Exam General Appearance: alert, no apparent distress EENT: normal ENT inspection Respiratory: lungs clear, normal breath sounds Cardiac/Chest: regular rate, rhythm Abdomen: normal bowel sounds, non-tender, soft Skin: normal color Extremities: non-tender ICD10 Worksheet Patient Problems: Problems Problem Status Onset Peripheral neuropathy due to inflammation Acute Vasculitis, ANCA positive Acute 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
[2017-09-06] MEDS: traMADol 50 MG TAB PO SCH (21:15)
[2017-09-06] MEDS: GABAPENTIN 300 MG CAP PO PRN (23:49)
[2017-09-07] MEDS: HYDROCODONE/APAP 5/325 TAB PO PRN (04:04)
[2017-09-07] MEDS: LEVOTHYROXINE 75 MCG TAB PO SCH (05:43)
[2017-09-07] MEDS: PANTOPRAZOLE SODIUM 40 MG TAB PO SCH (09:25)
[2017-09-07] MEDS: PYRIDOXINE HCL 100 MG TAB PO SCH (09:25)
[2017-09-07] MEDS: CHOLECALCIFEROL VIT D3 2,000 UNITS TAB/CAP PO SCH (09:25)
[2017-09-07] MEDS: predniSONE 20 MG TAB PO SCH (09:26)
[2017-09-07] MEDS: GABAPENTIN 300 MG CAP PO SCH ×3 (09:26→20:59)
[2017-09-07] MEDS: CALCIUM CARBONATE 500 MG TAB PO SCH ×2 (09:26→21:00)
[2017-09-07] MEDS: SENNOSIDES/DOCUSATE SODIUM TAB PO SCH ×2 (09:26→21:00)
--- NOTE | 2017-09-07 10:43 | SOAPPROG ---
SOAP Progress Note Assessment/Plan: Assessment/Plan: 46-year-old woman hospitalized 08/26/2017 after 6 week course of increasing weakness leading to falls at home, with diagnosis of P-ANCA vasculitis, treated with 1000 mg IV prednisolone x3 days. Diagnosis of mononeuritis multiplex per Rheumatology 09/01/2017. 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 * Initial functional independence measure score 87 on 09/01/2017. Standby assist for bed mobility, contact guard assist for transfers with a front wheeled walker. Contact guard minimal assist ambulating 100 ft with a left AFO. Climbed 5 stairs with bilateral rails and minimal assistance. Upper body dressing with setup/contact guard assist except needs assistance for fine motor coordination. Lower body assist for AFO and the shoe on the left foot. Shower transfer and bathing with supervision. * Ambulation improved to 150' and per PT can do this 3x/day or more as of 2017.. * Continue PT and OT to optimize mobility and activities of daily living toward discharge home at the modified independent level. * Mononeuritis multiplex vs Peripheral neuropathy ; may benefit from 4 limb nerve conduction studies plus EMG to help elucidate this. * Seen by Rheumatology 09/01/2017. Going for 2nd opinion on 09/09/2017. * Prednisone reduced to 60 mg QD. * Needs muscle/nerve biopsy, to be scheduled per [facility]. * Follow-up with Rheumatology in 8 weeks, or approximately 10/27/2017. Symptom management. She continues to complain of paresthesias in both hands and both feet, however she reports these continue to improve slowly. * Increased gabapentin from 300 mg three times daily to 400 mg three times daily on 09/02/2017. Increased further to 600 mg three times daily on 09/04/2017. * Continue acetaminophen, hydrocodone/acetaminophen combination, and ibuprofen. Tramadol 50 mg QHS. * Added PRN neurontin dose at night because this is when the pain seems to be the worst * Insomnia. * Hope for improvement if neuropathic comes responded to increased gabapentin, and if prednisone will be tapered or discontinued. * Zolpidem and lorazepam are available. * Constipation. Responding to bowel regimen. * Continue senna twice daily in a polyethylene glycol q.day, physical suppository p.r.n.. Consider repeat magnesium citrate if necessary. * Thrombocytosis. Likely due to vasculitis. No specific treatment indicated. * Osteopenia on imaging. Low vitamin-D. Initiated supplementation 09/01/2017. Will place on calcium supplementation. Pharmacy to review to make sure no cross reactions with supplemental calcium and current medications. + weight loss-will write order for nutrition supplements such as Ensure. * Prophylaxis. Ambulating > 150' TID. D/C'd enoxaparin 09/05/2017. Today's Update - Continues to be bother by the tingling. Trialled the PRN dose of neurontin last night but didn't notice a huge change - ended up taking the vicodin early this morning with some benefit. Did have discussion about other potential trials of meds or other modalities that we could try and work with therapy for some desensitization techniques vs relaxation/meditation techniques. Pt would like to discuss with Dr. Dubon. Would also like her ankle wrapped for a potential sprain weeks ago. Anxious about upcoming appt with neurology. Will repeat labs to monitor thrombocytosis and ongoing kidney function 09/06/17 10:01 09/07/17 10:46 Subjective: Doing pretty well today - reporting that still having ongoing tingling in her fingers/feet - can be pretty exhausting and often impacts her sleep. We discussed some different techniques we could try to decreased pain including trially compression vs different medication trial such as lyrica. She reported she would like to discuss these option with Dr. Dubon tomorrow. Also reports that thinks she might have sprained her ankle at some point - weeks ago, Maybe this contributing? Objective: Vital Signs Temp Pulse Resp BP Pulse Ox 36.5 C 65 16 122/79 H 93 09/07/17 06:18 09/07/17 06:18 09/07/17 06:18 09/07/17 06:18 09/07/17 06:18 Laboratory Results 09/01/17 06:00 09/01/17 06:00 09/06/17 09/07/17 09/08/17 05:59 05:59 05:59 Intake Total 725 600 275 Balance 725 600 275 Physical Exam - Physical Exam General Appearance: alert EENT: PERRL/EOMI Respiratory: lungs clear Cardiac/Chest: regular rate, rhythm Abdomen: normal bowel sounds, non-tender Skin: normal color Neuro/Psych: alert, normal mood/affect ICD10 Worksheet Patient Problems: Problems Problem Status Onset Peripheral neuropathy due to inflammation Acute Vasculitis, ANCA positive 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
[2017-09-07] MEDS: ZOLPIDEM TARTRATE 5 MG TAB PO PRN (20:59)
[2017-09-07] MEDS: traMADol 50 MG TAB PO SCH (21:00)
[2017-09-08] MEDS: HYDROCODONE/APAP 5/325 TAB PO PRN (00:05)
[2017-09-08] MEDS: LEVOTHYROXINE 75 MCG TAB PO SCH (06:33)
[2017-09-08 09:32] LABS: PLATELET COUNT 430 10^3/uL (150-400)
[2017-09-08] MEDS: PANTOPRAZOLE SODIUM 40 MG TAB PO SCH (10:03)
[2017-09-08] MEDS: GABAPENTIN 300 MG CAP PO SCH ×3 (10:03→21:47)
[2017-09-08] MEDS: CHOLECALCIFEROL VIT D3 2,000 UNITS TAB/CAP PO SCH (10:04)
[2017-09-08] MEDS: PYRIDOXINE HCL 100 MG TAB PO SCH (10:05)
[2017-09-08] MEDS: predniSONE 20 MG TAB PO SCH (10:05)
[2017-09-08] MEDS: CALCIUM CARBONATE 500 MG TAB PO SCH ×2 (10:05→21:46)
[2017-09-08] MEDS: SENNOSIDES/DOCUSATE SODIUM TAB PO SCH ×2 (10:06→21:46)
[2017-09-08] MEDS: IBUPROFEN 200 MG TAB PO PRN (10:16)
--- NOTE | 2017-09-08 13:16 | SOAPPROG ---
SOAP Progress Note Assessment/Plan: Assessment: 46-year-old woman hospitalized 08/26/2017 after 6 week course of increasing weakness leading to falls at home, with diagnosis of P-ANCA vasculitis, treated with 1000 mg IV prednisolone x3 days. Diagnosis of mononeuritis multiplex per Rheumatology 09/01/2017. 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 * Initial functional independence measure score 87 on 09/01/2017; improved to 94 as of 09/08/2017. Independent to standby assist for bed mobility and transfers. Ambulating 50-150 feet standby assist with a front wheeled walker and an AFO. She negotiated 6 stairs with 1 rail with with a side stepping technique. Modified independence for dressing and toileting. * Continue PT and OT to optimize mobility and activities of daily living toward discharge home at the modified independent level. * Mononeuritis multiplex. * Seen by Rheumatology 09/01/2017. Going for 2nd opinion on 09/09/2017. * Prednisone reduced to 60 mg QD. * Needs muscle/nerve biopsy, to be scheduled per [facility] after Rheumatology 2nd opinion.. * Follow-up with Rheumatology in 8 weeks, or approximately 10/27/2017. Symptom management. She continues to complain of paresthesias. * Increased gabapentin from 300 mg three times daily to 400 mg three times daily on 09/02/2017. Increased further to 600 mg three times daily on 09/04/2017. * Continue acetaminophen, hydrocodone/acetaminophen combination, and ibuprofen. Tramadol 50 mg QHS. * Insomnia. * Hope for improvement if neuropathic pain response to increased gabapentin, and if prednisone will be tapered or discontinued. * Zolpidem and lorazepam are available. * Constipation. Responding to bowel regimen. * Continue senna twice daily in a polyethylene glycol q.day, physical suppository p.r.n.. Consider repeat magnesium citrate if necessary. * no signs or symptoms of UTI despite change in urine color. Will not obtain urinalysis. * Thrombocytosis. Likely due to vasculitis. No specific treatment indicated. * Osteopenia on imaging. Low vitamin-D. Initiated supplementation 09/01/2017. * Prophylaxis. Ambulating > 150' TID. D/C'd enoxaparin 09/05/2017. Followup. She is scheduled to see [facility] clinical data specialist Dr. Flores on approximately 10/27/2017. Her primary care provider at [facility] is Susan Houser MD, and she should see Dr. Houser after her discharge from Inpatient Rehabilitation. Attended staffing, 15 min. Discussed with case management, pharmacy, dietitian , PT, OT. Lives in a 2 level home with 13 steps there is also basement. There are 2 steps to enter. Lives with her and takes care of 2 children ages 7 and 9. Continue discharge date of 09/10/2017. Home PT and OT. 09/08/17 13:16 Subjective: Multiple vague complaints. Thinks she has less sensation in her left foot and is worried that she will lose sensation in her whole leg. She is concerned about a sprained ankle on the left but denies pain. She thinks the tingling in her extremities is worse at night. She is concerned about color change in the urine. She denies any specific symptoms of urinary tract infection including no urinary frequency and no pain with urination. When asked if she has kidney pain she expresses worry about her kidneys but denies any pain; wants reassurance that her kidneys are okay. Objective: Vital Signs Temp Pulse Resp BP Pulse Ox 36.8 C 74 16 121/88 H 95 09/08/17 07:40 09/08/17 07:40 09/08/17 07:40 09/08/17 07:40 09/08/17 07:40 Laboratory Results 09/08/17 06:05 09/08/17 06:05 09/07/17 09/08/17 09/09/17 05:59 05:59 05:59 Intake Total 600 505 550 Balance 600 505 550 - Time Spent With Patient Time Spent With Patient: Greater than 35 min floor time today, including more than 50% of time in coordination of care during staffing meeting, and counseling patient. 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
[2017-09-08] MEDS: traMADol 50 MG TAB PO SCH (21:46)
[2017-09-08] MEDS: ZOLPIDEM TARTRATE 5 MG TAB PO PRN (21:53)
[2017-09-09] MEDS: HYDROCODONE/APAP 5/325 TAB PO PRN (00:57)
[2017-09-09] MEDS: GABAPENTIN 300 MG CAP PO PRN (03:36)
[2017-09-09] MEDS: LEVOTHYROXINE 75 MCG TAB PO SCH (08:02)
[2017-09-09] MEDS: PANTOPRAZOLE SODIUM 40 MG TAB PO SCH (08:04)
[2017-09-09] MEDS: GABAPENTIN 300 MG CAP PO SCH ×3 (09:28→21:32)
[2017-09-09] MEDS: CHOLECALCIFEROL VIT D3 2,000 UNITS TAB/CAP PO SCH (09:28)
[2017-09-09] MEDS: CALCIUM CARBONATE 500 MG TAB PO SCH ×2 (09:28→21:31)
[2017-09-09] MEDS: PYRIDOXINE HCL 100 MG TAB PO SCH (09:29)
[2017-09-09] MEDS: predniSONE 20 MG TAB PO SCH (09:29)
[2017-09-09] MEDS: SENNOSIDES/DOCUSATE SODIUM TAB PO SCH ×2 (09:31→21:32)
--- NOTE | 2017-09-09 10:30 | SOAPPROG ---
SOAP Progress Note Assessment/Plan: 46-year-old woman hospitalized 08/26/2017 after 6 week course of increasing weakness leading to falls at home, with diagnosis of P-ANCA vasculitis, treated with 1000 mg IV prednisolone x3 days. Diagnosis of mononeuritis multiplex per Rheumatology 09/01/2017. Today's update: Patient continues to have unchanged paresthesias in the hands and feet, she notices no decrement in function. Plan to follow up with physical medicine rehabilitation after discharge. Working on discharge organization today. A total of 35 min was spent on the floor the care of the patient, the majority of which was spent counseling regarding vasculitis coordination of care regarding discharge planning. Patient is currently not interested in increasing dose of gabapentin, continue plan below. 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 * Initial functional independence measure score 87 on 09/01/2017; improved to 94 as of 09/08/2017. Independent to standby assist for bed mobility and transfers. Ambulating 50-150 feet standby assist with a front wheeled walker and an AFO. She negotiated 6 stairs with 1 rail with with a side stepping technique. Modified independence for dressing and toileting. * Continue PT and OT to optimize mobility and activities of daily living toward discharge home at the modified independent level. * Mononeuritis multiplex. * Seen by Rheumatology 09/01/2017. Going for 2nd opinion on 09/09/2017. * Prednisone reduced to 60 mg QD. * Needs muscle/nerve biopsy, to be scheduled per [facility] after Rheumatology 2nd opinion.. * Follow-up with Rheumatology in 8 weeks, or approximately 10/27/2017. Symptom management. She continues to complain of paresthesias. * Increased gabapentin from 300 mg three times daily to 400 mg three times daily on 09/02/2017. Increased further to 600 mg three times daily on 09/04/2017. Could go up to 900 mg 4 times a day. * Continue acetaminophen, hydrocodone/acetaminophen combination, and ibuprofen. Tramadol 50 mg QHS. * Insomnia. * Hope for improvement if neuropathic pain response to increased gabapentin, and if prednisone will be tapered or discontinued. * Zolpidem and lorazepam are available. * Constipation. Responding to bowel regimen. * Continue senna twice daily in a polyethylene glycol q.day, physical suppository p.r.n.. Consider repeat magnesium citrate if necessary. * no signs or symptoms of UTI despite change in urine color. Will not obtain urinalysis. * Thrombocytosis. Likely due to vasculitis. No specific treatment indicated. * Osteopenia on imaging. Low vitamin-D. Initiated supplementation 09/01/2017. * Prophylaxis. Ambulating > 150' TID. D/C'd enoxaparin 09/05/2017. Followup. She is scheduled to see [facility] hand decorator Dr. Flores on approximately 10/27/2017. Her primary care provider at [facility] is Susan Houser MD, and she should see Dr. Houser after her discharge from Inpatient Rehabilitation. Follow up with physical medicine rehabilitation in the [facility] system after discharge. Lives in a 2 level home with 13 steps there is also basement. There are 2 steps to enter. Lives with her and takes care of 2 children ages 7 and 9. Continue discharge date of 09/10/2017. Home PT and OT. 09/09/17 10:30 Subjective: Chief complaint: Paresthesias No acute events overnight. Patient denies any new shortness of breath or chest pain, no new numbness, tingling, or weakness. She endorses ongoing paresthesias , worse at night, notes that current medications have been helpful and she does not want any changes. She planning for discharge home with home health and follow up in the [facility] system. Organizing discharge today. She prefers written instructions in [employer], I provided patient education regarding vasculitis in [employer] format today. Objective: Vital Signs Temp Pulse Resp BP Pulse Ox 36.6 C 62 14 112/67 94 09/09/17 06:56 09/09/17 06:56 09/09/17 06:56 09/09/17 06:56 09/09/17 06:56 Laboratory Results 09/08/17 06:05 09/08/17 06:05 09/08/17 09/09/17 09/10/17 05:59 05:59 05:59 Intake Total 505 1200 Balance 505 1200 - Pending Discharge Pending Discharge Within 24 Hours: Yes Pending Discharge Date: 09/10/17 Pending Discharge Time: 11:00 Physical Exam - Physical Exam General Appearance: WD/WN, alert, no apparent distress Respiratory: lungs clear, normal breath sounds, No respiratory distress, No accessory muscle use Cardiac/Chest: normal peripheral pulses, regular rate, rhythm, No edema Skin: normal color, warm/dry, No cyanosis, No diaphoresis Extremities: No pedal edema, No swelling Neuro/Psych: alert, normal mood/affect, oriented x 3 ICD10 Worksheet Patient Problems: Problems Problem Status Onset Peripheral neuropathy due to inflammation Acute Vasculitis, ANCA positive 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
--- NOTE | 2017-09-09 10:34 | PDOREHIP ---
Admission [facility] - Admission - 3 Day Assessment Period Admission Date/Day 1: 08/29/17 Day 2: 08/30/17 Day 3: 08/31/17 Discharge [facility] - Discharge - 3 Day Assessment Period 2 Days Prior to Anticipated Discharge Date: 09/08/17 1 Day Prior to Anticipated Discharge Date: 09/09/17 Anticipated Discharge Date: 09/10/17 - Discharge Skin Conditions Unhealed Pressure Ulcer (1 or more/Stage 1 or >)-Discharge: 0. No
[2017-09-09] MEDS: traMADol 50 MG TAB PO SCH (21:31)
[2017-09-09] MEDS: ZOLPIDEM TARTRATE 5 MG TAB PO PRN (21:40)
[2017-09-10] MEDS: HYDROCODONE/APAP 5/325 TAB PO PRN (00:54)
[2017-09-10] MEDS: LEVOTHYROXINE 75 MCG TAB PO SCH (06:15)
[2017-09-10 06:19] VITALS: BP 109/66; PULSE 70; O2SAT 93
[2017-09-10 06:26] VITALS: RESP 16; TEMP 98.7
[2017-09-10] MEDS: PYRIDOXINE HCL 100 MG TAB PO SCH (09:12)
[2017-09-10] MEDS: CHOLECALCIFEROL VIT D3 2,000 UNITS TAB/CAP PO SCH (09:13)
[2017-09-10] MEDS: predniSONE 20 MG TAB PO SCH (09:13)
[2017-09-10] MEDS: CALCIUM CARBONATE 500 MG TAB PO SCH (09:13)
[2017-09-10] MEDS: GABAPENTIN 300 MG CAP PO SCH ×2 (09:13→15:30)
[2017-09-10] MEDS: PANTOPRAZOLE SODIUM 40 MG TAB PO SCH (09:13)
[2017-09-10] MEDS: SENNOSIDES/DOCUSATE SODIUM TAB PO SCH (09:20)
--- NOTE | 2017-09-10 15:32 | GDS ---
[f rep st] DISCHARGE SUMMARY ADMITTING DIAGNOSIS: Mononeuritis multiplex due to vasculitis with distal weakness and numbness of the extremities. DISCHARGE DIAGNOSIS: Mononeuritis multiplex due to vasculitis with distal weakness and numbness of the extremities. OTHER DISCHARGE DIAGNOSES: 1. Insomnia. 2. Osteopenia with vitamin D deficiency. CONSULTATIONS: She was seen by [facility] and had a subsequent visit for a 2nd opinion with another [facility] music pastor. PROCEDURES: There were none. COMPLICATIONS: There were none. HISTORY AND HOSPITAL COURSE: This patient came to [facility] inpatient rehabilitation from [facility]. She had presented there on 08/26, after 6 weeks of progressive upper and lower extremity weakness, muscle pain, and loss of sensation. Prior outpatient evaluation with multiple tests initially showed hypothyroidism and subsequently she was positive for P-ANCA vasculitis with anti myeloperoxidase antibodies. She received high-dose IV steroids at 1000 mg of methylprednisolone per day for several days and then was transitioned to oral prednisone 60 mg twice a day. She had improvement in her function, but continued to have muscle weakness and lack of sensation including a left foot drop. She was appropriate for inpatient rehabilitation. She had improvement in her function. Her initial functional independence measure was 87, which is consistent with assisted living level of care. This was on 09/01/2017. She required standby assist for bed mobility, contact guard assist for transfers with a front-wheeled walker, contact guard to minimal assist for ambulation as far as 100 feet with a left ankle-foot orthosis. She had climbed 5 stairs with bilateral rails and minimal assist. She needed assistance to don the left AFO, but otherwise activities of daily living were contact guard to supervision level. She had improvement with her functional independence measure at 94 as of 2017. She was ambulating 50-150 feet standby assist with a front-wheeled walker and an AFO. She negotiated 6 stairs with 1 rail using a sidestepping technique. She achieved modified independence for activities of daily living. She had achieved a modified independence at the wheelchair level. She had negotiated 12 steps with a side step pattern and standby assist using a rail and she negotiated 3 stairs with a quad cane and handheld assist. She progressed to modified independence in her room with a front-wheeled walker. She had paresthesias in the hands and feet which were bothersome. These improved somewhat with titration of gabapentin from 300 mg 3 times a day to 600 mg 3 times a day as of 09/04/2017. She did not want further titration. She was using 50 mg of tramadol at h.s. and occasional hydrocodone/acetaminophen usually in the middle of the night. She had insomnia which improved with zolpidem 5 mg, which she did not use every night during her stay. She was seen by Rheumatology on 09/01/2017. Prednisone was reduced to 60 mg daily. Rheumatology ordered a sural nerve biopsy in order to establish a definitive diagnosis. The patient was reticent to proceed with a biopsy and wanted a 2nd opinion. She had a 2nd opinion from a different [facility] music pastor who supported the same plan. Osteopenia was seen on imaging at [facility]. Vitamin D level was checked and was low at 21.1 ng/mL. She was begun on vitamin D supplementation as well as calcium chloride. LABORATORIES AND STUDIES: Other labs and studies during her stay, basic metabolic profile was overall within normal limits. CBC showed an elevated white blood cell count at 16.5 on 09/08/2017, which was likely due to steroids. She had minimal anemia with a hemoglobin of 12.1, hematocrit was normal at 38.4. Platelet count was somewhat elevated at 430, consistent with a vasculitis and she had elevation of both absolute neutrophils and absolute monocytes. PHYSICAL EXAM: On the day of discharge vitals blood pressure is 109/66, heart rate is 70, respiratory rate is 16, oxygen saturation is 93% on room air. Temperature is 37.1 degrees centigrade. Her weight is 51.6 kg for a body mass index of 20.8. GENERAL: This is a thin woman, appears her chronologic age, cooperative, in no acute distress. RESPIRATORY: There is no respiratory distress, tachypnea, or accessory muscle use. NEUROLOGIC: She is alert and oriented x3. She ambulates slightly wide-based with a slow pace using a front- wheeled walker and a left AFO. DISCHARGE PLAN: Condition upon discharge is good. ACTIVITY: Ad sergei, but no driving. DIET: Regular. DATE OF NEXT APPOINTMENT: She has an appointment with her primary care provider , Dr. Susan Villarreal at [facility] on 09/11/2017, at 11:40 am. She has a followup planned with [facility] music pastor Dr. Navi Flores on 09/15/2017, at 1:00 p.m. she has a referral to [facility] viscose department worker Dr. Navi Burch with the appointment to be set up by the [facility] and she will have an appointment with [facility], Dr. Katie Taylor. This was originally set for 09/17/2017 at 1:30 p.m., but it may be done sooner pending further discussion between Dr. Flores and Dr. Taylor. MEDICATIONS AT DISCHARGE: 1. Acetaminophen 650 mg p.o. q.4 hours p.r.n. 2. Tramadol 50 mg p.o. at bedtime. 3. Prednisone 60 mg p.o. daily. 4. Zolpidem 5 mg p.o. at bedtime p.r.n. 5. Senna/docusate 2 tabs p.o. b.i.d. 6. Vitamin B12 100 mg p.o. daily. 7. Pantoprazole 40 mg p.o. daily. 8. Levothyroxine 75 mcg p.o. daily. 9. Lorazepam 0.5-1 mg p.o. q.4 hours p.r.n. 10. Ibuprofen 400 mg p.o. t.i.d. with meals p.r.n. 11. Hydrocodone/acetaminophen 5/325, 1-2 tablets p.o. q.4 hours p.r.n. 12. Gabapentin 600 mg p.o. t.i.d. 13. Cholecalciferol 5000 units p.o. daily. 14. Calcium carbonate 500 mg p.o. b.i.d. ISSUES TO BE ADDRESSED AT FOLLOWUP: 1. Functional status. She will continue PT and OT at home after discharge and she can follow up with primary care provider as well as Dr. Flores regarding her progress. 2. Mononeuritis multiplex due to vasculitis. Sural nerve biopsy per [facility] and further followup with [facility] regarding steroid sparing medications. 3. Insomnia. It is hoped that she will sleep better when she is home. She may continue zolpidem on a p.r.n. basis for the short term. 4. Paresthesias and sensory loss. Continue gabapentin. It is hoped that these symptoms will improve with continued recovery. 5. Possible osteopenia and vitamin-D deficiency. Continue calcium and vitamin- D. Follow up with primary care provider or Rheumatology. Consider bone densitometry. Copy requested to: MD Navi Irizarry MD Carolyn Tejirian, MD Tracy Starling, MD /[id number]/MODL MTDD
== END 2017-09-10 16:18 | disposition home health service (06) | DRG 547 ==
LOC: BREH 16:42
PROVIDERS: ADMIT Internal Medicine; ATTEND Internal Medicine
PROC: F0636ZZ Communicative/Cognitive Integration Skills Treatment of Neurological System - Whole Body (ICD-10-PCS; principal; 2017-08-29)
PROC: F07M3ZZ Motor Function Treatment of Musculoskeletal System - Whole Body (ICD-10-PCS; principal; 2017-08-29)
DX: I77.6 Arteritis, unspecified (principal); G63 Polyneuropathy in diseases classified elsewhere; E03.9 Hypothyroidism, unspecified; K59.00 Constipation, unspecified; G47.00 Insomnia, unspecified; F41.9 Anxiety disorder, unspecified; D64.9 Anemia, unspecified; R73.9 Hyperglycemia, unspecified; M85.88 Other specified disorders of bone density and structure, other site; E55.9 Vitamin D deficiency, unspecified
CPT/HCPCS: 97110-GO; 97110-GP; 97112-GO; 97112-GP; 97116-GP; 97140-GO; 97162-GP; 97166-GO; 97530-GO; 97530-GP; 97535-GO; J1650; J2930; J7512